=== PATIENT | female | born 1985 | race American Indian/Alaskan Native ===

== ENCOUNTER 2019-07-06 19:47 | Emergency (ER) | payer MEDICAID ==
[~2019-07-06] VITALS: Ht 170.2 cm; Wt 52.0 kg
[2019-07-06 20:36] LABS: BASOPHILS # (AUTO) 0.1 X10'3 (0-0.2); BASOPHILS % (AUTO) 1.4 % (0-1); EOSINOPHILS # (AUTO) 0.1 X10'3 (0-0.9); HEMOGLOBIN 14.3 g/dl (12.0-16.0); LYMPHOCYTES # (AUTO) 3.2 X10'3 (1.1-4.8); MEAN CORPUSCULAR HEMOGLOBIN 33.4 PG (27.0-31.0); MEAN CORPUSCULAR VOLUME 98.3 FL (78-98); MEAN PLATELET VOLUME 7.3 FL (7.4-10.4); MONOCYTES # (AUTO) 0.7 X10'3 (0-0.9); MONOCYTES % (AUTO) 11.6 % (2-12); NEUTROPHILS # (AUTO) 2.1 X10'3 (1.8-7.7); PLATELET COUNT 230 X10'3 (140-440); RED BLOOD COUNT 4.27 X10'6 (4.20-5.60); WHITE BLOOD COUNT 6.3 X10'3 (4.5-11.0)
[2019-07-06 20:50] LABS: ALANINE AMINOTRANSFERASE 31 U/L (12-78); ALBUMIN 4.1 G/DL (3.4-5.0); ALKALINE PHOSPHATASE 101 IU/L (46-116); ANION GAP 12 (8-16); ASPARTATE AMINO TRANSFERASE 53 U/L (10-37); BILIRUBIN,TOTAL 0.3 MG/DL (0.1-1.0); BLOOD UREA NITROGEN 7 MG/DL (7-18); BUN/CREATININE RATIO 11.3 (6.6-38.0); CALCIUM 9.5 MG/DL (8.5-10.1); CHLORIDE 106 MMOL/L (99-107); CREATININE 0.62 MG/DL (0.40-0.90); GLUCOSE 110 MG/DL (70-104); POTASSIUM 3.8 MMOL/L (3.5-5.1); SODIUM 144 MMOL/L (135-145); TOTAL CARBON DIOXIDE 26.3 MMOL/L (24-32); TOTAL PROTEIN 8.2 G/DL (6.4-8.2); eGFR > 90 ML/MIN
[2019-07-06 21:01] LABS: ETHANOL 0.412 GM/DL (0.0-0.010)
[2019-07-06 21:24] LABS: CLARITY,URINE CLEAR (Clear); COLOR,URINE YELLOW (Yellow); GLUCOSE, URINE NEGATIVE (Neg); KETONES,URINE NEGATIVE (Neg); LEUKOCYTE ESTERASE ,URINE NEGATIVE (Neg); NITRITES, URINE NEGATIVE (Neg); OCCULT BLOOD,URINE TRACE-INTACT (Neg); PROTEIN,URINE NEGATIVE (Neg); UROBILINOGEN,URINE 0.2 E.U/dL (0.2-1.0)
[2019-07-06 21:25] LABS: UA COLLECTION TYPE VOIDED
--- NOTE | 2019-07-06 21:25 | NUR ---
Pt ambulated to her room. Appearance is disheveled and unkempt. Physical assessment done at bedside. Pt was cooperative but did becomes agitated and teary when speaking about her and dog. Pt denies any S/I. States is enforcing auditory hallucinations and states the voices are always there but she can't make up what they are saying. Pt is feeling hopeless from being homeless and doesn't know what to do because no one seems to be willing to help her. Pt admits to smoking at least 1 pack per day and is also a heavy drinker. Pt is requesting for her to be let in so she can tell her what is going on with her.
[2019-07-06 21:30] LABS: URINE AMPHETAMINE SCREEN NEGATIVE (Neg); URINE BARBITUATE SCREEN NEGATIVE (Neg); URINE BENZODIAZEPINES SCREEN NEGATIVE (Neg); URINE CANNABINOID SCREEN NEGATIVE (Neg); URINE COCAINE SCREEN NEGATIVE (Neg); URINE METHADONE SCREEN NEGATIVE (Neg); URINE OPIATE SCREEN NEGATIVE (Neg); URINE PHENCYCLIDINE SCREEN NEGATIVE (Neg)
[2019-07-06 21:31] LABS: BACTERIA,URINE FEW /HPF (Neg); RBC,URINE 0-2 /HPF (0-2); WBC,URINE 0-4 /HPF (0-4)
[2019-07-06 21:32] LABS: MUCUS STRANDS NONE SEEN /LPF (Neg); SQUAMOUS EPITHELIAL CELL,UR MODERATE /LPF (FEW)
[2019-07-06 21:39] LABS: URINE HCG NEGATIVE (NEG)
--- NOTE | 2019-07-06 22:00 | NUR ---
Pt is visited by who had to be escorted out by security because he claims that he needs to be on a hold as well. Pt did became a somewhat agitated by this but is currently sleeping at the moment laying in a prone position. Respirations are even and unlabored. Appears to be in no distress.
[2019-07-06 22:03] LABS: PLATELET ESTIMATE NORMAL; TOTAL CELLS COUNTED 100
[2019-07-06 22:04] LABS: TARGET CELLS FEW
[2019-07-06] MEDS ORDERED: NO HOME MEDS (22:29)
--- NOTE | 2019-07-06 22:57 | NUR ---
consulted about alcohol level (0.412H)
[2019-07-06] MEDS ORDERED: phenobarbital inj 260 MG in normal saline 100ml IV soln 100 ML IV ONE (23:05)
[2019-07-06] MEDS ORDERED: normal saline 1000ML IV soln IVB ONE (23:05)
[2019-07-06] MEDS ORDERED: magnesium oxide 400mg tablet PO ONE (23:05)
[2019-07-06] MEDS ORDERED: thiamine 100mg tablet PO ONE (23:05)
[2019-07-06 23:14] LABS: MAGNESIUM 2.1 MG/DL (1.5-2.4)
--- NOTE | 2019-07-06 23:58 | NUR ---
IV started on left forearm. Patient and fluids initiated as bolus (2000ml) Pt is currently laying on her left side. Appears to be sleeping. Respirations are even and unlabored, appears to be in no distress.
[2019-07-07] MEDS ORDERED: phenobarbital inj 130 MG in normal saline 100ml IV soln 100 ML IV ONE (00:30)
--- NOTE | 2019-07-07 02:08 | NUR ---
Pt is currently sleeping in a supine position. Respiration are even and unlabored. Does not appear to be in any distress. Phenobarbital 260mg IVB and Phenobarbital 130mg IVB were completed. IV site is left as saline locked per 's orders. Will continue to monitor.
--- NOTE | 2019-07-07 04:16 | NUR ---
Pt continues to sleep while laying in a supine position. Encouraged pt to get up and void but is refusing.
--- NOTE | 2019-07-07 05:51 | NUR ---
Pt's IV was flushed. IV is patent and intact. After this, pt ambulates to the bathroom. Currently lawyin on her right side covered with blankets, appeart to be sleeping.
[2019-07-07 05:53] VITALS: BP 107/62
--- NOTE | 2019-07-07 14:15 | NUR ---
Pt complains of red itchy rash which she thinks is poison oak. Scattered small red/pink raised areas on arms, trunk, neck and face. Dr. Durant informed. Dr. Durant recommends keeping an eye on rash.
--- NOTE | 2019-07-07 15:11 | NUR ---
PIV removed and dressed. Pt in bathroom chnaging clothes.
== END 2019-07-07 15:16 | disposition home or self-care (01) ==
LOC: ER 19:48
DX: R44.0 Auditory hallucinations (principal); R62.7 Adult failure to thrive; F31.9 Bipolar disorder, unspecified; F10.129 Alcohol abuse with intoxication, unspecified; R00.0 Tachycardia, unspecified; Z59.0 Homelessness; Z88.0 Allergy status to penicillin; Y90.0 Blood alcohol level of less than 20 mg/100 ml
CPT/HCPCS: 36415; 80053; 80305; 80320; 81001; 81025; 83735; 84443; 85025; 93005; 96365; 96376; 99284; J2560; J7030

== ENCOUNTER 2020-02-09 22:35 | Emergency (ER) | payer MEDICAID ==
[~2020-02-09] VITALS: Ht 170.2 cm; Wt 50.0 kg
[~2020-02-09 22:35] MED LIST: NO HOME MEDS
[2020-02-09 22:40] VITALS: BP 96/64
== END 2020-02-09 23:29 | disposition left against medical advice (07) ==
LOC: ER 22:36
DX: R50.9 Fever, unspecified (principal); Z53.21 Procedure and treatment not carried out due to patient leaving prior to being seen by health care provider